=== PATIENT | male | born 1955 | race Caucasian/White ===

== ENCOUNTER 2020-07-12 15:57 | Inpatient (IN) ==
[2020-07-12 17:18] LABS: Basophils % 0.3 %; Hematocrit 41.4 % (37.5-50.1); Hemoglobin 12.9 g/dL (12.9-16.9); Immature Granulocytes % 1.4 % (0-4); Lymphocytes # 0.5 K/mcL (0.6-4.6); Lymphocytes % 4.8 %; Mean Corpuscular HGB Conc 31.2 g/dL (31.6-35.5); Mean Corpuscular Hemoglobin 31.6 pg (28.0-33.3); Mean Corpuscular Volume 101.5 fL (83.0-100.0); Mean Platelet Volume 9.7 fL (9.4-12.4); Monocytes # 0.5 K/mcL (0.0-1.3); Monocytes % 5.1 %; Platelet Count 233 K/mcL (140-400); Red Blood Count 4.08 M/mcL (4.19-5.50); Red Cell Distribution Width 12.8 % (11.5-14.5); Segmented Neutrophils % 88.4 %; White Blood Count 10.1 K/mcL (4.3-11.1)
[2020-07-12 17:25] LABS: INR 0.9; Prothrombin Time 10.2 Seconds (9.4-12.1)
[2020-07-12 17:28] LABS: Activated Partial Thrombo Time 24.3 Seconds (26.0-36.0)
[2020-07-12 17:44] LABS: Alanine Aminotransferase 42 Units/L (7-52); Albumin 4.1 g/dL (3.5-5.7); Albumin/Globulin Ratio 1.8 (1.1-2.2); Alkaline Phosphatase 87 Units/L (34-104); Aspartate Amino Transferase 20 Units/L (13-39); BUN/Creatinine Ratio 28 (6-26); Bilirubin,Total 0.3 mg/dL (0.3-1.0); Blood Urea Nitrogen 17 mg/dL (8-23); Calcium 9.3 mg/dL (8.6-10.3); Carbon Dioxide > 45 mEq/L (23-29); Chloride 90 mEq/L (98-107); Globulin 2.3 g/dL (2.4-3.5); Glucose 384 mg/dL (70-105); Osmolality,Calculated 307 (280-300); Potassium 4.4 mEq/L (3.5-5.1); Sodium 140 mEq/L (136-145); Total Protein 6.4 g/dL (6.4-8.9); Troponin I 0.09 ng/mL (< 0.04); eGFR For African Americans > 60 (> 60); eGFR For Non-African Americans > 60 (> 60)
[2020-07-12 17:45] LABS: Bilirubin,Urine Negative (Negative); Blood,Urine Negative (Negative); Clarity,Urine Clear (Clear); Color,Urine Light-Yellow (Yellow); Glucose,Urine (UA) >=1000 mg/dL (Normal); Ketones,Urine Negative (Negative); Leukocyte Esterase,Urine Negative (Negative); Mucus,Urine Few per lpf (None-Few); Nitrite,Urine Negative (Negative); PH,Urine 5.5 pH Units (5.0-8.0); Protein,Urine Trace mg/dL (Neg-Trace); RBC,Urine 0-3 per hpf (0-3); Specific Gravity,Urine > 1.030 (1.010-1.025); Urobilinogen,Urine Normal (Normal); WBC,Urine 0-3 per hpf (0-3)
[2020-07-12] MEDS ORDERED: cefTRIAXone 1,000 MG in Water for inj. (sterile) 10 ML IVP ONE (18:20)
[2020-07-12] MEDS ORDERED: Azithromycin 500 MG in 0.9 % Sodium Chloride 250 ML IVPB ONE (18:20)
[2020-07-12] MEDS ORDERED: Aspirin 81 MG TAB.CHEW PO ONE (18:20)
[2020-07-12 18:42] LABS: Bilirubin,Urine Negative (Negative); Blood,Urine Trace (Negative); Clarity,Urine Clear (Clear); Color,Urine Light-Yellow (Yellow); Glucose,Urine (UA) >=1000 mg/dL (Normal); Ketones,Urine Negative (Negative); Leukocyte Esterase,Urine Negative (Negative); Mucus,Urine Few per lpf (None-Few); Nitrite,Urine Negative (Negative); PH,Urine 5.5 pH Units (5.0-8.0); Protein,Urine Trace mg/dL (Neg-Trace); RBC,Urine 0-3 per hpf (0-3); Specific Gravity,Urine > 1.030 (1.010-1.025); Urobilinogen,Urine Normal (Normal); WBC,Urine 0-3 per hpf (0-3)
[2020-07-12] MEDS ORDERED: methylPREDNISolone 125 MG/2 ML VIAL IVP ONE (18:47)
[2020-07-12] MEDS ORDERED: Ipratropium 1 PUFF INHALER IH ONE (18:49)
[2020-07-12] MEDS ORDERED: *HR* LORazepam 2 MG/ML VIAL IVP ONE (19:45)
[2020-07-12 20:38] LABS: VBG HCO3 55 mEq/L (21-27); VBG PCO2 101 mmHg (41-51); VBG PH 7.34 pH Units (7.32-7.42); VBG PO2 77 mmHg (25-50)
[2020-07-12 21:05] LABS: Adenovirus Not Detected (Not Detect); Bordetella Pertussis Not Detected (Not Detect); Chlamydophila pneumoniae Not Detected (Not Detect); Coronavirus 229E Not Detected (Not Detect); Coronavirus HKU1 Not Detected (Not Detect); Coronavirus NL63 Not Detected (Not Detect); Coronavirus OC43 Not Detected (Not Detect); Human Metapneumovirus Not Detected (Not Detect); Human Rhinovirus/Enterovirus Not Detected (Not Detect); Influenza A Subtype 2009 H1 Not Detected (Not Detect); Influenza B Not Detected (Not Detect); Mycoplasma pneumoniae Not Detected (Not Detect); Parainfluenza Virus 1 Not Detected (Not Detect); Parainfluenza Virus 2 Not Detected (Not Detect); Parainfluenza Virus 3 Not Detected (Not Detect); Parainfluenza Virus 4 Not Detected (Not Detect); Respiratory Syncytial Virus Not Detected (Not Detect); SARS-CoV-2 Not Detected (Not Detect)
[2020-07-12] MEDS ORDERED: Ondansetron 4 MG/2 ML VIAL IVP PRN (22:37)
[2020-07-12] MEDS ORDERED: Acetaminophen 325 MG TABLET PO PRN (22:37)
[2020-07-12] MEDS ORDERED: Naloxone 0.4 MG/ML INJ IVP PRN (22:37)
[2020-07-12] MEDS ORDERED: *HR* LORazepam 2 MG/ML VIAL IVP PRN ×3 (23:13)
[2020-07-12] MEDS ORDERED: Perflutren Lipid Microsphere 1.3 ML in 0.9 % Sodium Chloride 8.7 ML IVP PRN (23:15)
[2020-07-12] MEDS ORDERED: *HR* Labetalol 20 MG/4 ML SYRINGE IVP PRN (23:27)
[2020-07-12] MEDS: *HR* LORazepam Oral Conc 2 MG/ML SL ONE ×2 (23:28→23:39)
[2020-07-12] MEDS: Thiamine (B-1) 100 MG TABLET PO SCH (23:29)
[2020-07-12] MEDS: Vitamin B Complex/Vit C/Vit E 1 EACH TABLET PO SCH (23:29)
[2020-07-12] MEDS: Folic Acid 1 MG TABLET PO SCH (23:29)
[2020-07-13 00:59] LABS: ABG Base Excess 21 mEq/L (-2 to 3); ABG HCO3 54 mEq/L (21-27); ABG Oxygen Saturation 88 % (95-98); ABG PCO2 109 mmHg (35-45); ABG PO2 66 mmHg (85-104); ABG TCO2 > 50 mEq/L (20-26); Blood Gas Modality BiLevel; Blood Gas VT 450 cc
[2020-07-13] MEDS ORDERED: *HR* Heparin 5,000 UNIT/ML VIAL IVP PRN ×2 (01:05)
[2020-07-13] MEDS ORDERED: *HR* Heparin 5,000 UNIT/ML VIAL IVP ONE (01:05)
[2020-07-13] MEDS ORDERED: D5% in Water 1,000 ML IVC PRN (01:25)
[2020-07-13] MEDS ORDERED: Dextrose Gel 15 GM/37.5 ML TUBE PO PRN ×2 (01:25)
[2020-07-13] MEDS ORDERED: *HR* Dextrose 50 % in Water (Vial) 50 ML VIAL IVP PRN (01:25)
[2020-07-13 01:47] LABS: VBG HCO3 51 mEq/L (21-27); VBG PCO2 84 mmHg (41-51); VBG PH 7.39 pH Units (7.32-7.42); VBG PO2 149 mmHg (25-50)
[2020-07-13 01:59] LABS: Prothrombin Time 11.3 Seconds (9.4-12.1)
[2020-07-13] MEDS: Heparin 25,000UNIT/250ML 1/2NS 25,000 UNIT/250 ML IV.SOLN IVC SCH (01:59)
[2020-07-13 02:03] LABS: Heparin anti-factor XA UFH 0.05 IU/mL (0.30-0.70)
[2020-07-13 02:16] LABS: BUN/Creatinine Ratio 33 (6-26); Blood Urea Nitrogen 17 mg/dL (8-23); Calcium 8.7 mg/dL (8.6-10.3); Carbon Dioxide > 45 mEq/L (23-29); Chloride 91 mEq/L (98-107); Glucose 258 mg/dL (70-105); Magnesium 1.9 mg/dL (1.6-2.6); Osmolality,Calculated 300 (280-300); Potassium 4.5 mEq/L (3.5-5.1); Sodium 140 mEq/L (136-145); eGFR For African Americans > 60 (> 60); eGFR For Non-African Americans > 60 (> 60)
[2020-07-13 02:18] LABS: Troponin I 0.48 ng/mL (< 0.04)
[2020-07-13 02:32] LABS: Basophils % 0.3 %; Hematocrit 38.8 % (37.5-50.1); Red Cell Distribution Width 12.8 % (11.5-14.5)
[2020-07-13 02:34] LABS: Eosinophils % 0.1 %; Hemoglobin 12.7 g/dL (12.9-16.9); Immature Platelets 4.6 % (1.1-6.1); Lymphocytes # 0.4 K/mcL (0.6-4.6); Lymphocytes % 3.1 %; Mean Corpuscular HGB Conc 32.7 g/dL (31.6-35.5); Mean Corpuscular Hemoglobin 31.9 pg (28.0-33.3); Mean Corpuscular Volume 97.5 fL (83.0-100.0); Mean Platelet Volume 10.3 fL (9.4-12.4); Monocytes # 0.2 K/mcL (0.0-1.3); Monocytes % 1.9 %; Nucleated Red Blood Cells 0.2 /100 WBC (0); Platelet Count 220 K/mcL (140-400); Red Blood Count 3.98 M/mcL (4.19-5.50); Segmented Neutrophils % 93.6 %; White Blood Count 11.6 K/mcL (4.3-11.1)
[2020-07-13 03:08] LABS: Thyroid Stimulating Hormone 0.469 mcIU/mL (0.340-5.600)
[2020-07-13 03:17] LABS: Neutrophils # 10.9 K/mcL (1.6-8.9)
[2020-07-13 03:36] LABS: ABG Base Excess 17 mEq/L (-2 to 3); ABG HCO3 48 mEq/L (21-27); ABG Oxygen Saturation 97 % (95-98); ABG PCO2 95 mmHg (35-45); ABG PH 7.31 pH Units (7.32-7.45); ABG PO2 113 mmHg (85-104); ABG TCO2 > 50 mEq/L (20-26); Blood Gas Modality BiLevel; Blood Gas VT 500 cc
[2020-07-13] MEDS: Insulin LISPRO 300 UNITS/3 ML VIAL SQ SCH ×3 (05:51→17:30)
[2020-07-13] MEDS: Thiamine (B-1) 100 MG TABLET PO SCH (07:21)
[2020-07-13] MEDS: Vitamin B Complex/Vit C/Vit E 1 EACH TABLET PO SCH (07:21)
[2020-07-13] MEDS: Folic Acid 1 MG TABLET PO SCH (07:21)
[2020-07-13 08:33] LABS: ABG Base Excess 20 mEq/L (-2 to 3); ABG HCO3 51 mEq/L (21-27); ABG Oxygen Saturation 98 % (95-98); ABG PCO2 96 mmHg (35-45); ABG PH 7.34 pH Units (7.32-7.45); ABG PO2 113 mmHg (85-104); ABG TCO2 > 50 mEq/L (20-26); Blood Gas VT 500 cc
[2020-07-13 14:20] LABS: VBG HCO3 53 mEq/L (21-27); VBG PCO2 87 mmHg (41-51); VBG PH 7.39 pH Units (7.32-7.42); VBG PO2 195 mmHg (25-50)
[2020-07-13] MEDS: carvediloL 6.25 MG TABLET PO SCH (17:29)
[2020-07-13] MEDS ORDERED: Ipratropium Neb 0.5 MG NEBULIZER IH PRN (17:39)
[2020-07-13 17:45] LABS: VBG HCO3 54 mEq/L (21-27); VBG PCO2 83 mmHg (41-51); VBG PH 7.42 pH Units (7.32-7.42); VBG PO2 236 mmHg (25-50)
[2020-07-13] MEDS: cefTRIAXone 1,000 MG in Water for inj. (sterile) 10 ML IVPB SCH (18:24)
[2020-07-13] MEDS ORDERED: MethylPREDNISolone 40 MG/ML VIAL IVP SCH (19:00)
[2020-07-13] MEDS: Ipratropium/Albuterol Neb 3 ML IH SCH ×2 (19:40→22:16)
[2020-07-13] MEDS: risperiDONE 1 MG TABLET PO SCH (20:11)
[2020-07-13] MEDS: Perphenazine 8 MG TABLET PO SCH (20:11)
[2020-07-14] MEDS: Insulin LISPRO 300 UNITS/3 ML VIAL SQ SCH ×4 (02:50→17:25)
[2020-07-14] MEDS: Heparin 25,000UNIT/250ML 1/2NS 25,000 UNIT/250 ML IV.SOLN IVC SCH (03:06)
[2020-07-14] MEDS: Ipratropium/Albuterol Neb 3 ML IH SCH ×4 (03:40→22:20)
[2020-07-14 05:58] LABS: Basophils % 0.2 %; Hematocrit 40.6 % (37.5-50.1); Immature Granulocytes % 0.6 % (0-4); Lymphocytes # 0.8 K/mcL (0.6-4.6); Lymphocytes % 7.5 %; Mean Corpuscular Hemoglobin 31.8 pg (28.0-33.3); Mean Corpuscular Volume 99.3 fL (83.0-100.0); Mean Platelet Volume 9.8 fL (9.4-12.4); Monocytes # 0.6 K/mcL (0.0-1.3); Monocytes % 6.1 %; Neutrophils # 8.7 K/mcL (1.6-8.9); Platelet Count 247 K/mcL (140-400); Red Blood Count 4.09 M/mcL (4.19-5.50); Red Cell Distribution Width 12.5 % (11.5-14.5); Segmented Neutrophils % 85.6 %; White Blood Count 10.1 K/mcL (4.3-11.1)
[2020-07-14 06:01] LABS: VBG HCO3 49 mEq/L (21-27); VBG PCO2 72 mmHg (41-51); VBG PH 7.44 pH Units (7.32-7.42); VBG PO2 152 mmHg (25-50)
[2020-07-14 06:18] LABS: Alanine Aminotransferase 28 Units/L (7-52); Albumin 3.5 g/dL (3.5-5.7); Albumin/Globulin Ratio 1.7 (1.1-2.2); Alkaline Phosphatase 79 Units/L (34-104); Aspartate Amino Transferase 15 Units/L (13-39); BUN/Creatinine Ratio 55 (6-26); Bilirubin,Total 0.6 mg/dL (0.3-1.0); Blood Urea Nitrogen 31 mg/dL (8-23); Calcium 8.5 mg/dL (8.6-10.3); Carbon Dioxide > 45 mEq/L (23-29); Chloride 90 mEq/L (98-107); Globulin 2.1 g/dL (2.4-3.5); Glucose 207 mg/dL (70-105); Magnesium 2.2 mg/dL (1.6-2.6); Osmolality,Calculated 307 (280-300); Potassium 4.3 mEq/L (3.5-5.1); Sodium 142 mEq/L (136-145); Total Protein 5.6 g/dL (6.4-8.9); Troponin I 0.27 ng/mL (< 0.04); eGFR For African Americans > 60 (> 60); eGFR For Non-African Americans > 60 (> 60)
[2020-07-14] MEDS: Thiamine (B-1) 100 MG TABLET PO SCH (09:23)
[2020-07-14] MEDS: Perphenazine 8 MG TABLET PO SCH ×2 (09:23→20:14)
[2020-07-14] MEDS: Aspirin Enteric Coated 81 MG Tablet PO SCH (09:23)
[2020-07-14] MEDS: carvediloL 6.25 MG TABLET PO SCH ×2 (09:23→17:24)
[2020-07-14] MEDS: Folic Acid 1 MG TABLET PO SCH (09:23)
[2020-07-14] MEDS: risperiDONE 1 MG TABLET PO SCH ×2 (09:24→20:14)
[2020-07-14] MEDS: Vitamin B Complex/Vit C/Vit E 1 EACH TABLET PO SCH (09:24)
[2020-07-14] MEDS: MethylPREDNISolone 40 MG/ML VIAL IVP SCH ×2 (12:10→22:10)
[2020-07-14] MEDS: cefTRIAXone 1,000 MG in Water for inj. (sterile) 10 ML IVPB SCH (17:24)
[2020-07-14] MEDS: Insulin LISPRO 300 UNITS/3 ML VIAL SUBQ SCH (20:20)
[2020-07-15] MEDS: Ipratropium/Albuterol Neb 3 ML IH SCH ×4 (03:44→22:50)
[2020-07-15] MEDS: Heparin 25,000UNIT/250ML 1/2NS 25,000 UNIT/250 ML IV.SOLN IVC SCH (05:50)
[2020-07-15 06:44] LABS: Basophils % 0.1 %; Hematocrit 37.6 % (37.5-50.1); Hemoglobin 12.2 g/dL (12.9-16.9); Immature Granulocytes % 0.5 % (0-4); Lymphocytes # 0.3 K/mcL (0.6-4.6); Lymphocytes % 3.3 %; Mean Corpuscular HGB Conc 32.4 g/dL (31.6-35.5); Mean Corpuscular Hemoglobin 31.2 pg (28.0-33.3); Mean Corpuscular Volume 96.2 fL (83.0-100.0); Mean Platelet Volume 10.2 fL (9.4-12.4); Monocytes # 0.2 K/mcL (0.0-1.3); Monocytes % 2.6 %; Neutrophils # 7.6 K/mcL (1.6-8.9); Platelet Count 208 K/mcL (140-400); Red Blood Count 3.91 M/mcL (4.19-5.50); Red Cell Distribution Width 12.5 % (11.5-14.5); Segmented Neutrophils % 93.5 %; White Blood Count 8.2 K/mcL (4.3-11.1)
[2020-07-15] MEDS: Vitamin B Complex/Vit C/Vit E 1 EACH TABLET PO SCH (07:43)
[2020-07-15] MEDS: Perphenazine 8 MG TABLET PO SCH ×2 (07:43→21:00)
[2020-07-15] MEDS: Aspirin Enteric Coated 81 MG Tablet PO SCH (07:43)
[2020-07-15] MEDS: risperiDONE 1 MG TABLET PO SCH ×2 (07:43→21:00)
[2020-07-15] MEDS: Insulin LISPRO 300 UNITS/3 ML VIAL SUBQ SCH ×4 (07:43→21:01)
[2020-07-15] MEDS: Thiamine (B-1) 100 MG TABLET PO SCH (07:43)
[2020-07-15] MEDS: carvediloL 6.25 MG TABLET PO SCH ×2 (07:43→16:59)
[2020-07-15] MEDS: Folic Acid 1 MG TABLET PO SCH (07:43)
[2020-07-15 08:38] LABS: BUN/Creatinine Ratio 44 (6-26); Blood Urea Nitrogen 22 mg/dL (8-23); Calcium 8.4 mg/dL (8.6-10.3); Carbon Dioxide 39 mEq/L (23-29); Chloride 90 mEq/L (98-107); Glucose 352 mg/dL (70-105); Osmolality,Calculated 297 (280-300); Potassium 4.5 mEq/L (3.5-5.1); Sodium 135 mEq/L (136-145); eGFR For African Americans > 60 (> 60); eGFR For Non-African Americans > 60 (> 60)
[2020-07-15] MEDS: MethylPREDNISolone 40 MG/ML VIAL IVP SCH ×2 (09:40→21:01)
[2020-07-15] MEDS ORDERED: Nicotine 2 MG GUM BC PRN (13:57)
[2020-07-15] MEDS: Doxycycline 100 MG in 0.9 % Sodium Chloride Mini Bag 100 ML IVPB SCH (16:59)
[2020-07-15] MEDS: *HR* Heparin 5,000 UNIT/ML VIAL SQ SCH (21:01)
[2020-07-16] MEDS: Ipratropium/Albuterol Neb 3 ML IH SCH ×4 (03:47→22:46)
[2020-07-16] MEDS: Doxycycline 100 MG in 0.9 % Sodium Chloride Mini Bag 100 ML IVPB SCH ×2 (06:55→17:14)
[2020-07-16] MEDS: *HR* Heparin 5,000 UNIT/ML VIAL SQ SCH ×3 (06:56→22:56)
[2020-07-16 07:34] LABS: Basophils % 0.1 %; Hematocrit 38.1 % (37.5-50.1); Hemoglobin 12.4 g/dL (12.9-16.9); Immature Granulocytes % 0.8 % (0-4); Lymphocytes # 0.3 K/mcL (0.6-4.6); Lymphocytes % 2.7 %; Mean Corpuscular HGB Conc 32.5 g/dL (31.6-35.5); Mean Corpuscular Hemoglobin 31.5 pg (28.0-33.3); Mean Corpuscular Volume 96.7 fL (83.0-100.0); Mean Platelet Volume 10.2 fL (9.4-12.4); Monocytes # 0.6 K/mcL (0.0-1.3); Monocytes % 5.2 %; Neutrophils # 10.7 K/mcL (1.6-8.9); Platelet Count 234 K/mcL (140-400); Red Blood Count 3.94 M/mcL (4.19-5.50); Red Cell Distribution Width 12.4 % (11.5-14.5); Segmented Neutrophils % 91.2 %; White Blood Count 11.7 K/mcL (4.3-11.1)
[2020-07-16 07:53] LABS: BUN/Creatinine Ratio 48 (6-26); Blood Urea Nitrogen 30 mg/dL (8-23); Calcium 8.3 mg/dL (8.6-10.3); Carbon Dioxide 38 mEq/L (23-29); Chloride 90 mEq/L (98-107); Glucose 397 mg/dL (70-105); Osmolality,Calculated 297 (280-300); Sodium 132 mEq/L (136-145); eGFR For African Americans > 60 (> 60); eGFR For Non-African Americans > 60 (> 60)
[2020-07-16] MEDS: Perphenazine 8 MG TABLET PO SCH ×2 (08:10→22:56)
[2020-07-16] MEDS: Folic Acid 1 MG TABLET PO SCH (08:10)
[2020-07-16] MEDS: Vitamin B Complex/Vit C/Vit E 1 EACH TABLET PO SCH (08:10)
[2020-07-16] MEDS: carvediloL 6.25 MG TABLET PO SCH ×2 (08:10→17:14)
[2020-07-16] MEDS: Aspirin Enteric Coated 81 MG Tablet PO SCH (08:10)
[2020-07-16] MEDS: Thiamine (B-1) 100 MG TABLET PO SCH (08:10)
[2020-07-16] MEDS: risperiDONE 1 MG TABLET PO SCH ×2 (08:10→22:56)
[2020-07-16] MEDS: Insulin LISPRO 300 UNITS/3 ML VIAL SUBQ SCH ×4 (08:11→22:55)
[2020-07-16] MEDS: MethylPREDNISolone 40 MG/ML VIAL IVP SCH (09:40)
[2020-07-17 02:58] LABS: Basophils % 0.1 %; Hematocrit 39.4 % (37.5-50.1); Hemoglobin 12.9 g/dL (12.9-16.9); Immature Granulocytes % 0.7 % (0-4); Lymphocytes # 0.7 K/mcL (0.6-4.6); Lymphocytes % 5.8 %; Mean Corpuscular HGB Conc 32.7 g/dL (31.6-35.5); Mean Corpuscular Hemoglobin 32.3 pg (28.0-33.3); Mean Corpuscular Volume 98.5 fL (83.0-100.0); Mean Platelet Volume 10.3 fL (9.4-12.4); Monocytes % 8.2 %; Neutrophils # 10.9 K/mcL (1.6-8.9); Platelet Count 228 K/mcL (140-400); Red Cell Distribution Width 12.3 % (11.5-14.5); Segmented Neutrophils % 85.2 %; White Blood Count 12.8 K/mcL (4.3-11.1)
[2020-07-17 02:59] LABS: INR 0.9; Prothrombin Time 10.3 Seconds (9.4-12.1)
[2020-07-17 03:11] LABS: BUN/Creatinine Ratio 56 (6-26); Blood Urea Nitrogen 33 mg/dL (8-23); Calcium 8.8 mg/dL (8.6-10.3); Carbon Dioxide 40 mEq/L (23-29); Chloride 92 mEq/L (98-107); Glucose 311 mg/dL (70-105); Osmolality,Calculated 299 (280-300); Potassium 5.4 mEq/L (3.5-5.1); Sodium 135 mEq/L (136-145); eGFR For African Americans > 60 (> 60); eGFR For Non-African Americans > 60 (> 60)
[2020-07-17] MEDS: Ipratropium/Albuterol Neb 3 ML IH SCH ×4 (03:47→22:11)
[2020-07-17] MEDS: Doxycycline 100 MG in 0.9 % Sodium Chloride Mini Bag 100 ML IVPB SCH ×2 (06:40→17:19)
[2020-07-17] MEDS: *HR* Heparin 5,000 UNIT/ML VIAL SQ SCH ×3 (06:40→20:07)
[2020-07-17] MEDS: MethylPREDNISolone 40 MG/ML VIAL IVP SCH (08:07)
[2020-07-17] MEDS: Insulin LISPRO 300 UNITS/3 ML VIAL SUBQ SCH ×4 (08:08→20:30)
[2020-07-17] MEDS: Perphenazine 8 MG TABLET PO SCH ×2 (08:09→20:07)
[2020-07-17] MEDS: risperiDONE 1 MG TABLET PO SCH ×2 (08:09→20:08)
[2020-07-17] MEDS: Thiamine (B-1) 100 MG TABLET PO SCH (08:09)
[2020-07-17] MEDS: carvediloL 6.25 MG TABLET PO SCH ×2 (08:09→17:19)
[2020-07-17] MEDS: Vitamin B Complex/Vit C/Vit E 1 EACH TABLET PO SCH (08:09)
[2020-07-17] MEDS: Aspirin Enteric Coated 81 MG Tablet PO SCH (08:09)
[2020-07-17] MEDS: Folic Acid 1 MG TABLET PO SCH (08:09)
[2020-07-17] MEDS ORDERED: *HR* Propofol 200 MG/20 ML VIAL IVP ONE (11:10)
[2020-07-17] MEDS ORDERED: *HR* Succinylcholine 200 MG/10 ML VIAL IVP ONE (11:11)
[2020-07-17] MEDS ORDERED: Lidocaine HCL 4 ML Topical Solution (Laryng-O-Jet Kit Sterile Pak) TP ONE (11:14)
[2020-07-17] MEDS ORDERED: Lidocaine -MPF 2% 2 ML VIAL ONE (11:16)
[2020-07-17] MEDS ORDERED: *HR* PHENYLEPHRINE 1,000 MCG/10 ML SYRINGE IVP ONE (11:44)
[2020-07-17] MEDS ORDERED: EPHEDrine 50 MG/ML VIAL ONE (11:51)
[2020-07-17 12:48] LABS: ABG Base Excess 13 mEq/L (-2 to 3); ABG HCO3 45 mEq/L (21-27); ABG Oxygen Saturation 92 % (95-98); ABG PCO2 109 mmHg (35-45); ABG PH 7.23 pH Units (7.32-7.45); ABG PO2 84 mmHg (85-104); ABG TCO2 49 mEq/L (20-26)
[2020-07-17 14:37] LABS: BUN/Creatinine Ratio 52 (6-26); Blood Urea Nitrogen 29 mg/dL (8-23); Calcium 8.7 mg/dL (8.6-10.3); Carbon Dioxide 42 mEq/L (23-29); Chloride 93 mEq/L (98-107); Glucose 146 mg/dL (70-105); Osmolality,Calculated 290 (280-300); Potassium 5.7 mEq/L (3.5-5.1); Sodium 136 mEq/L (136-145); eGFR For African Americans > 60 (> 60); eGFR For Non-African Americans > 60 (> 60)
[2020-07-17 17:22] LABS: Appearance of Body Fluid Cloudy (Clear); Volume of Body Fluid 16 mL
[2020-07-17 17:23] LABS: Appearance of Body Fluid Cloudy (Clear); Volume of Body Fluid 21 mL
[2020-07-17] MEDS ORDERED: Furosemide 40 MG/4 ML VIAL IVP ONE (20:00)
[2020-07-17] MEDS: Vancomycin 1,250 MG/262.5 ML IV.SOLN IVPB SCH (20:32)
[2020-07-18] MEDS: Ipratropium/Albuterol Neb 3 ML IH SCH ×4 (03:47→21:34)
[2020-07-18] MEDS: Doxycycline 100 MG in 0.9 % Sodium Chloride Mini Bag 100 ML IVPB SCH ×2 (05:47→18:57)
[2020-07-18] MEDS: *HR* Heparin 5,000 UNIT/ML VIAL SQ SCH ×3 (05:48→20:37)
[2020-07-18 07:27] LABS: Basophils % 0.1 %; Eosinophils % 0.1 %; Hematocrit 42.5 % (37.5-50.1); Hemoglobin 13.9 g/dL (12.9-16.9); Immature Granulocytes % 0.4 % (0-4); Lymphocytes # 0.8 K/mcL (0.6-4.6); Lymphocytes % 5.7 %; Mean Corpuscular HGB Conc 32.7 g/dL (31.6-35.5); Mean Corpuscular Hemoglobin 32.4 pg (28.0-33.3); Mean Corpuscular Volume 99.1 fL (83.0-100.0); Mean Platelet Volume 10.1 fL (9.4-12.4); Monocytes # 0.7 K/mcL (0.0-1.3); Monocytes % 4.8 %; Neutrophils # 12.6 K/mcL (1.6-8.9); Platelet Count 217 K/mcL (140-400); Red Blood Count 4.29 M/mcL (4.19-5.50); Red Cell Distribution Width 12.6 % (11.5-14.5); Segmented Neutrophils % 88.9 %; White Blood Count 14.1 K/mcL (4.3-11.1)
[2020-07-18 08:12] LABS: BUN/Creatinine Ratio 55 (6-26); Blood Urea Nitrogen 32 mg/dL (8-23); Calcium 8.7 mg/dL (8.6-10.3); Carbon Dioxide > 45 mEq/L (23-29); Chloride 89 mEq/L (98-107); Glucose 124 mg/dL (70-105); Osmolality,Calculated 294 (280-300); Potassium 4.2 mEq/L (3.5-5.1); Sodium 138 mEq/L (136-145); eGFR For African Americans > 60 (> 60); eGFR For Non-African Americans > 60 (> 60)
[2020-07-18] MEDS: Insulin LISPRO 300 UNITS/3 ML VIAL SUBQ SCH ×4 (08:34→20:36)
[2020-07-18] MEDS: risperiDONE 1 MG TABLET PO SCH ×2 (08:35→20:33)
[2020-07-18] MEDS: Perphenazine 8 MG TABLET PO SCH ×2 (08:35→20:36)
[2020-07-18] MEDS: Vitamin B Complex/Vit C/Vit E 1 EACH TABLET PO SCH (08:35)
[2020-07-18] MEDS: Aspirin Enteric Coated 81 MG Tablet PO SCH (08:35)
[2020-07-18] MEDS: Folic Acid 1 MG TABLET PO SCH (08:35)
[2020-07-18] MEDS: carvediloL 6.25 MG TABLET PO SCH ×2 (08:35→16:40)
[2020-07-18] MEDS: Thiamine (B-1) 100 MG TABLET PO SCH (08:35)
[2020-07-18] MEDS: MethylPREDNISolone 40 MG/ML VIAL IVP SCH (08:35)
[2020-07-18] MEDS: Vancomycin 1,250 MG/262.5 ML IV.SOLN IVPB SCH ×2 (11:53→22:22)
[2020-07-19] MEDS: Ipratropium/Albuterol Neb 3 ML IH SCH ×4 (03:30→22:06)
[2020-07-19] MEDS: Doxycycline 100 MG in 0.9 % Sodium Chloride Mini Bag 100 ML IVPB SCH (05:22)
[2020-07-19] MEDS: *HR* Heparin 5,000 UNIT/ML VIAL SQ SCH ×3 (05:22→21:34)
[2020-07-19 08:39] LABS: Basophils % 0.1 %; Eosinophils % 0.2 %; Hematocrit 36.9 % (37.5-50.1); Immature Granulocytes % 1.2 % (0-4); Lymphocytes # 0.9 K/mcL (0.6-4.6); Lymphocytes % 5.8 %; Mean Corpuscular HGB Conc 32.8 g/dL (31.6-35.5); Mean Corpuscular Hemoglobin 31.7 pg (28.0-33.3); Mean Corpuscular Volume 96.6 fL (83.0-100.0); Mean Platelet Volume 10.1 fL (9.4-12.4); Monocytes # 0.9 K/mcL (0.0-1.3); Monocytes % 6.3 %; Neutrophils # 12.5 K/mcL (1.6-8.9); Platelet Count 212 K/mcL (140-400); Red Blood Count 3.82 M/mcL (4.19-5.50); Red Cell Distribution Width 12.4 % (11.5-14.5); Segmented Neutrophils % 86.4 %; White Blood Count 14.5 K/mcL (4.3-11.1)
[2020-07-19 08:44] LABS: Hemoglobin 12.1 g/dL (12.9-16.9)
[2020-07-19 09:04] LABS: BUN/Creatinine Ratio 43 (6-26); Blood Urea Nitrogen 22 mg/dL (8-23); Calcium 8.2 mg/dL (8.6-10.3); Carbon Dioxide 41 mEq/L (23-29); Chloride 94 mEq/L (98-107); Glucose 207 mg/dL (70-105); Osmolality,Calculated 295 (280-300); Potassium 4.2 mEq/L (3.5-5.1); Sodium 138 mEq/L (136-145); eGFR For African Americans > 60 (> 60); eGFR For Non-African Americans > 60 (> 60)
[2020-07-19] MEDS: Insulin LISPRO 300 UNITS/3 ML VIAL SUBQ SCH ×4 (11:15→21:35)
[2020-07-19] MEDS: carvediloL 6.25 MG TABLET PO SCH ×2 (11:17→17:34)
[2020-07-19] MEDS: Aspirin Enteric Coated 81 MG Tablet PO SCH (11:18)
[2020-07-19] MEDS: Vitamin B Complex/Vit C/Vit E 1 EACH TABLET PO SCH (11:18)
[2020-07-19] MEDS: Perphenazine 8 MG TABLET PO SCH ×2 (11:18→21:33)
[2020-07-19] MEDS: Folic Acid 1 MG TABLET PO SCH (11:19)
[2020-07-19] MEDS: Thiamine (B-1) 100 MG TABLET PO SCH (11:19)
[2020-07-19] MEDS: risperiDONE 1 MG TABLET PO SCH ×2 (11:19→21:34)
[2020-07-19] MEDS: MethylPREDNISolone 40 MG/ML VIAL IVP SCH (11:20)
[2020-07-19] MEDS: Vancomycin 1,750 MG/517.5 ML IV.SOLN IVPB SCH ×2 (11:21→21:35)
[2020-07-19] MEDS: Vancomycin 1,250 MG/262.5 ML IV.SOLN IVPB SCH (11:22)
[2020-07-19] MEDS ORDERED: Furosemide 20 MG/2 ML VIAL IVP ONE (11:37)
[2020-07-19] MEDS: polyethylene glycoL 3350 17 GM POWD.PACK PO SCH (14:48)
[2020-07-20] MEDS: Ipratropium/Albuterol Neb 3 ML IH SCH ×4 (03:37→21:33)
[2020-07-20] MEDS: *HR* Heparin 5,000 UNIT/ML VIAL SQ SCH ×3 (06:04→20:10)
[2020-07-20 06:22] LABS: Basophils % 0.2 %; Eosinophils % 0.1 %; Hemoglobin 12.1 g/dL (12.9-16.9); Immature Granulocytes % 1.3 % (0-4); Lymphocytes # 0.6 K/mcL (0.6-4.6); Lymphocytes % 4.3 %; Mean Corpuscular HGB Conc 32.7 g/dL (31.6-35.5); Mean Corpuscular Volume 97.9 fL (83.0-100.0); Mean Platelet Volume 9.8 fL (9.4-12.4); Monocytes # 0.8 K/mcL (0.0-1.3); Monocytes % 5.3 %; Neutrophils # 13.1 K/mcL (1.6-8.9); Platelet Count 233 K/mcL (140-400); Red Blood Count 3.78 M/mcL (4.19-5.50); Red Cell Distribution Width 12.5 % (11.5-14.5); Segmented Neutrophils % 88.8 %; White Blood Count 14.8 K/mcL (4.3-11.1)
[2020-07-20 07:01] LABS: BUN/Creatinine Ratio 48 (6-26); Blood Urea Nitrogen 22 mg/dL (8-23); Calcium 8.5 mg/dL (8.6-10.3); Carbon Dioxide 40 mEq/L (23-29); Chloride 93 mEq/L (98-107); Glucose 203 mg/dL (70-105); Osmolality,Calculated 291 (280-300); Potassium 4.4 mEq/L (3.5-5.1); Sodium 136 mEq/L (136-145); eGFR For African Americans > 60 (> 60); eGFR For Non-African Americans > 60 (> 60)
[2020-07-20] MEDS: risperiDONE 1 MG TABLET PO SCH ×2 (08:13→20:09)
[2020-07-20] MEDS: Perphenazine 8 MG TABLET PO SCH ×2 (08:13→20:08)
[2020-07-20] MEDS: Folic Acid 1 MG TABLET PO SCH (08:13)
[2020-07-20] MEDS: Vitamin B Complex/Vit C/Vit E 1 EACH TABLET PO SCH (08:13)
[2020-07-20] MEDS: Thiamine (B-1) 100 MG TABLET PO SCH (08:13)
[2020-07-20] MEDS: predniSONE 20 MG TABLET PO SCH (08:13)
[2020-07-20] MEDS: Insulin LISPRO 300 UNITS/3 ML VIAL SUBQ SCH ×4 (08:14→20:13)
[2020-07-20] MEDS: carvediloL 6.25 MG TABLET PO SCH ×2 (08:14→16:53)
[2020-07-20] MEDS: polyethylene glycoL 3350 17 GM POWD.PACK PO SCH (08:14)
[2020-07-20] MEDS: Aspirin Enteric Coated 81 MG Tablet PO SCH (08:14)
[2020-07-20 08:32] LABS: ABG Base Excess 15 mEq/L (-2 to 3); ABG HCO3 43 mEq/L (21-27); ABG Oxygen Saturation 88 % (95-98); ABG PCO2 76 mmHg (35-45); ABG PH 7.37 pH Units (7.32-7.45); ABG PO2 60 mmHg (85-104); ABG TCO2 46 mEq/L (20-26)
[2020-07-20] MEDS: Insulin DETEMIR 100 UNIT/ML X5UNITS SUBQ SCH ×2 (10:01→20:55)
[2020-07-20] MEDS: Vancomycin 1,750 MG/517.5 ML IV.SOLN IVPB SCH ×2 (10:01→21:57)
[2020-07-21] MEDS: Ipratropium/Albuterol Neb 3 ML IH SCH ×4 (03:47→21:44)
[2020-07-21 04:58] LABS: Basophils % 0.3 %; Eosinophils # 0.1 K/mcL (0.0-0.6); Eosinophils % 0.6 %; Hematocrit 38.2 % (37.5-50.1); Hemoglobin 12.7 g/dL (12.9-16.9); Immature Granulocytes % 1.9 % (0-4); Lymphocytes # 1.4 K/mcL (0.6-4.6); Lymphocytes % 11.6 %; Mean Corpuscular HGB Conc 33.2 g/dL (31.6-35.5); Mean Corpuscular Hemoglobin 32.4 pg (28.0-33.3); Mean Corpuscular Volume 97.4 fL (83.0-100.0); Mean Platelet Volume 9.7 fL (9.4-12.4); Monocytes # 0.9 K/mcL (0.0-1.3); Monocytes % 7.5 %; Neutrophils # 9.3 K/mcL (1.6-8.9); Platelet Count 257 K/mcL (140-400); Red Blood Count 3.92 M/mcL (4.19-5.50); Red Cell Distribution Width 12.4 % (11.5-14.5); Segmented Neutrophils % 78.1 %; White Blood Count 11.9 K/mcL (4.3-11.1)
[2020-07-21 05:21] LABS: BUN/Creatinine Ratio 32 (6-26); Blood Urea Nitrogen 19 mg/dL (8-23); Calcium 8.8 mg/dL (8.6-10.3); Carbon Dioxide 45 mEq/L (23-29); Chloride 91 mEq/L (98-107); Glucose 98 mg/dL (70-105); Magnesium 1.9 mg/dL (1.6-2.6); Osmolality,Calculated 288 (280-300); Phosphorous 3.6 mg/dL (2.7-4.5); Potassium 4.2 mEq/L (3.5-5.1); Sodium 138 mEq/L (136-145); eGFR For African Americans > 60 (> 60); eGFR For Non-African Americans > 60 (> 60)
[2020-07-21 05:29] LABS: ABG Base Excess 16 mEq/L (-2 to 3); ABG HCO3 46 mEq/L (21-27); ABG Oxygen Saturation 94 % (95-98); ABG PCO2 79 mmHg (35-45); ABG PH 7.37 pH Units (7.32-7.45); ABG PO2 76 mmHg (85-104); ABG TCO2 48 mEq/L (20-26)
[2020-07-21] MEDS: *HR* Heparin 5,000 UNIT/ML VIAL SQ SCH ×3 (06:29→23:16)
[2020-07-21] MEDS: polyethylene glycoL 3350 17 GM POWD.PACK PO SCH (09:41)
[2020-07-21] MEDS: predniSONE 20 MG TABLET PO SCH (09:42)
[2020-07-21] MEDS: Aspirin Enteric Coated 81 MG Tablet PO SCH (09:42)
[2020-07-21] MEDS: Thiamine (B-1) 100 MG TABLET PO SCH (09:42)
[2020-07-21] MEDS: carvediloL 6.25 MG TABLET PO SCH ×2 (09:42→18:00)
[2020-07-21] MEDS: Folic Acid 1 MG TABLET PO SCH (09:42)
[2020-07-21] MEDS: Sulfamethoxazole/Trimeth DS 1 EACH TABLET PO SCH ×2 (09:42→20:42)
[2020-07-21] MEDS: risperiDONE 1 MG TABLET PO SCH ×2 (09:42→20:42)
[2020-07-21] MEDS: Vitamin B Complex/Vit C/Vit E 1 EACH TABLET PO SCH (09:42)
[2020-07-21] MEDS: Perphenazine 8 MG TABLET PO SCH ×2 (09:42→20:42)
[2020-07-21] MEDS: Insulin DETEMIR 100 UNIT/ML X5UNITS SUBQ SCH ×2 (09:42→20:42)
[2020-07-21] MEDS: Insulin LISPRO 300 UNITS/3 ML VIAL SUBQ SCH ×4 (09:43→20:42)
[2020-07-22 02:36] LABS: Basophils # 0.1 K/mcL (0.0-0.2); Basophils % 0.6 %; Eosinophils % 0.4 %; Hematocrit 38.4 % (37.5-50.1); Hemoglobin 12.7 g/dL (12.9-16.9); Immature Granulocytes % 2.1 % (0-4); Lymphocytes # 1.1 K/mcL (0.6-4.6); Lymphocytes % 9.9 %; Mean Corpuscular HGB Conc 33.1 g/dL (31.6-35.5); Mean Corpuscular Hemoglobin 31.8 pg (28.0-33.3); Mean Platelet Volume 9.6 fL (9.4-12.4); Monocytes # 0.9 K/mcL (0.0-1.3); Monocytes % 8.7 %; Neutrophils # 8.3 K/mcL (1.6-8.9); Platelet Count 287 K/mcL (140-400); Red Cell Distribution Width 12.4 % (11.5-14.5); Segmented Neutrophils % 78.3 %; White Blood Count 10.6 K/mcL (4.3-11.1)
[2020-07-22 02:57] LABS: BUN/Creatinine Ratio 32 (6-26); Blood Urea Nitrogen 18 mg/dL (8-23); Calcium 8.7 mg/dL (8.6-10.3); Carbon Dioxide 41 mEq/L (23-29); Chloride 91 mEq/L (98-107); Glucose 87 mg/dL (70-105); Magnesium 2.1 mg/dL (1.6-2.6); Osmolality,Calculated 283 (280-300); Phosphorous 4.7 mg/dL (2.7-4.5); Potassium 4.4 mEq/L (3.5-5.1); Sodium 136 mEq/L (136-145); eGFR For African Americans > 60 (> 60); eGFR For Non-African Americans > 60 (> 60)
[2020-07-22] MEDS: Ipratropium/Albuterol Neb 3 ML IH SCH ×2 (03:42→10:59)
[2020-07-22] MEDS: *HR* Heparin 5,000 UNIT/ML VIAL SQ SCH (05:48)
[2020-07-22 07:39] VITALS: BP 126/75
[2020-07-22] MEDS: polyethylene glycoL 3350 17 GM POWD.PACK PO SCH (09:49)
[2020-07-22] MEDS: Aspirin Enteric Coated 81 MG Tablet PO SCH (09:49)
[2020-07-22] MEDS: risperiDONE 1 MG TABLET PO SCH (09:49)
[2020-07-22] MEDS: Thiamine (B-1) 100 MG TABLET PO SCH (09:49)
[2020-07-22] MEDS: Folic Acid 1 MG TABLET PO SCH (09:49)
[2020-07-22] MEDS: Sulfamethoxazole/Trimeth DS 1 EACH TABLET PO SCH (09:49)
[2020-07-22] MEDS: Insulin LISPRO 300 UNITS/3 ML VIAL SUBQ SCH ×2 (09:50→13:03)
[2020-07-22] MEDS: Vitamin B Complex/Vit C/Vit E 1 EACH TABLET PO SCH (09:50)
[2020-07-22] MEDS: Perphenazine 8 MG TABLET PO SCH (09:50)
[2020-07-22] MEDS: predniSONE 20 MG TABLET PO SCH (09:50)
[2020-07-22] MEDS: carvediloL 6.25 MG TABLET PO SCH (09:50)
[2020-07-22] MEDS: Insulin DETEMIR 100 UNIT/ML X5UNITS SUBQ SCH (09:51)
== END 2020-07-22 13:05 | disposition home health service (06) | DRG 137 ==
LOC: 3ANU 15:57 → EMEROOARM 15:57 → SUATTDRO 21:34 → 3ANU 22:27 → SUATTDRO 07-13 19:05
PROVIDERS: ADMIT Pharmacist; ATTEND Internal Medicine

== ENCOUNTER 2020-08-14 11:30 | Inpatient (IN) ==
[2020-08-14] MEDS ORDERED: methylPREDNISolone 125 MG/2 ML VIAL IVP ONE (11:38)
[2020-08-14 12:07] LABS: Basophils % 0.4 %; Eosinophils % 0.2 %; Hematocrit 40.5 % (37.5-50.1); Hemoglobin 13.4 g/dL (12.9-16.9); Immature Granulocytes % 1.1 % (0-4); Lymphocytes # 0.8 K/mcL (0.6-4.6); Lymphocytes % 14.8 %; Mean Corpuscular HGB Conc 33.1 g/dL (31.6-35.5); Mean Corpuscular Hemoglobin 32.1 pg (28.0-33.3); Mean Corpuscular Volume 96.9 fL (83.0-100.0); Mean Platelet Volume 9.7 fL (9.4-12.4); Monocytes # 0.4 K/mcL (0.0-1.3); Monocytes % 7.2 %; Neutrophils # 4.3 K/mcL (1.6-8.9); Platelet Count 218 K/mcL (140-400); Red Blood Count 4.18 M/mcL (4.19-5.50); Red Cell Distribution Width 12.7 % (11.5-14.5); Segmented Neutrophils % 76.3 %; White Blood Count 5.7 K/mcL (4.3-11.1)
[2020-08-14 12:28] LABS: BUN/Creatinine Ratio 33 (6-26); Blood Urea Nitrogen 18 mg/dL (8-23); Calcium 8.6 mg/dL (8.6-10.3); Carbon Dioxide > 45 mEq/L (23-29); Chloride 88 mEq/L (98-107); Glucose 429 mg/dL (70-105); Osmolality,Calculated 302 (280-300); Potassium 4.1 mEq/L (3.5-5.1); Sodium 136 mEq/L (136-145); Troponin I < 0.03 ng/mL (< 0.04); eGFR For African Americans > 60 (> 60); eGFR For Non-African Americans > 60 (> 60)
[2020-08-14 12:55] LABS: Adenovirus Not Detected (Not Detect); Coronavirus 229E Not Detected (Not Detect); Coronavirus HKU1 Not Detected (Not Detect); Coronavirus NL63 Not Detected (Not Detect); Coronavirus OC43 Not Detected (Not Detect); Human Metapneumovirus Not Detected (Not Detect); Human Rhinovirus/Enterovirus Not Detected (Not Detect); Influenza A Subtype 2009 H1 Not Detected (Not Detect); SARS-CoV-2 Not Detected (Not Detect)
[2020-08-14 12:56] LABS: Bordetella Pertussis Not Detected (Not Detect); Chlamydophila pneumoniae Not Detected (Not Detect); Influenza B Not Detected (Not Detect); Mycoplasma pneumoniae Not Detected (Not Detect); Parainfluenza Virus 1 Not Detected (Not Detect); Parainfluenza Virus 2 Not Detected (Not Detect); Parainfluenza Virus 3 Not Detected (Not Detect); Parainfluenza Virus 4 Not Detected (Not Detect); Respiratory Syncytial Virus Not Detected (Not Detect)
[2020-08-14] MEDS ORDERED: Ipratropium/Albuterol Neb 3 ML IH ONE (12:59)
[2020-08-14] MEDS ORDERED: Ondansetron 4 MG/2 ML VIAL IVP PRN (15:19)
[2020-08-14] MEDS ORDERED: MOM Conc 10 ML UD.LIQ PO PRN (15:19)
[2020-08-14] MEDS ORDERED: Naloxone 0.4 MG/ML INJ IVP PRN (15:19)
[2020-08-14] MEDS ORDERED: D5% in Water 1,000 ML IVC PRN ×2 (15:32→15:33)
[2020-08-14] MEDS ORDERED: *HR* Dextrose 50 % in Water (Vial) 50 ML VIAL IVP PRN ×2 (15:32→15:33)
[2020-08-14] MEDS ORDERED: Dextrose Gel 15 GM/37.5 ML TUBE PO PRN ×4 (15:32→15:33)
[2020-08-14] MEDS: Ipratropium/Albuterol Neb 3 ML IH SCH ×2 (16:27→23:53)
[2020-08-14] MEDS: methylPREDNISolone 125 MG/2 ML VIAL IVP SCH (18:26)
[2020-08-14] MEDS: Azithromycin 500 MG in D5% in Water 250 ML IVPB SCH (18:27)
[2020-08-14] MEDS: Insulin LISPRO 300 UNITS/3 ML VIAL SUBQ SCH ×2 (18:33→20:22)
[2020-08-14] MEDS: *HR* Heparin 5,000 UNIT/ML VIAL SQ SCH (18:34)
[2020-08-14] MEDS: risperiDONE 1 MG TABLET PO SCH (20:21)
[2020-08-14 22:11] LABS: Estimated Average Glucose 209 mg/dl; Hemoglobin A1C 8.9 %
[2020-08-15] MEDS: methylPREDNISolone 125 MG/2 ML VIAL IVP SCH ×4 (00:04→23:53)
[2020-08-15] MEDS: Ipratropium/Albuterol Neb 3 ML IH SCH ×4 (03:52→22:38)
[2020-08-15 05:40] LABS: Basophils % 0.1 %; Hemoglobin 12.6 g/dL (12.9-16.9); Immature Granulocytes % 1.1 % (0-4); Lymphocytes # 0.7 K/mcL (0.6-4.6); Lymphocytes % 7.1 %; Mean Corpuscular HGB Conc 34.1 g/dL (31.6-35.5); Mean Corpuscular Hemoglobin 31.8 pg (28.0-33.3); Mean Corpuscular Volume 93.4 fL (83.0-100.0); Mean Platelet Volume 9.9 fL (9.4-12.4); Monocytes # 0.1 K/mcL (0.0-1.3); Neutrophils # 8.4 K/mcL (1.6-8.9); Platelet Count 231 K/mcL (140-400); Red Blood Count 3.96 M/mcL (4.19-5.50); Red Cell Distribution Width 12.3 % (11.5-14.5); Segmented Neutrophils % 90.7 %
[2020-08-15 05:42] LABS: White Blood Count 9.3 K/mcL (4.3-11.1)
[2020-08-15 05:58] LABS: Alanine Aminotransferase 20 Units/L (7-52); Albumin 3.9 g/dL (3.5-5.7); Albumin/Globulin Ratio 2.3 (1.1-2.2); Alkaline Phosphatase 65 Units/L (34-104); Aspartate Amino Transferase 14 Units/L (13-39); BUN/Creatinine Ratio 33 (6-26); Bilirubin,Total 0.7 mg/dL (0.3-1.0); Blood Urea Nitrogen 16 mg/dL (8-23); Calcium 8.8 mg/dL (8.6-10.3); Carbon Dioxide 45 mEq/L (23-29); Chloride 89 mEq/L (98-107); Globulin 1.7 g/dL (2.4-3.5); Glucose 350 mg/dL (70-105); Osmolality,Calculated 297 (280-300); Potassium 4.3 mEq/L (3.5-5.1); Sodium 136 mEq/L (136-145); Total Protein 5.6 g/dL (6.4-8.9); eGFR For African Americans > 60 (> 60); eGFR For Non-African Americans > 60 (> 60)
[2020-08-15] MEDS: *HR* Heparin 5,000 UNIT/ML VIAL SQ SCH ×2 (05:59→16:09)
[2020-08-15] MEDS: risperiDONE 1 MG TABLET PO SCH ×2 (08:00→21:02)
[2020-08-15] MEDS: Insulin LISPRO 300 UNITS/3 ML VIAL SUBQ SCH ×4 (08:03→21:03)
[2020-08-15] MEDS: Budesonide/Formoterol 160/4.5 1 PUFF INH IH SCH ×2 (09:57→22:38)
[2020-08-15] MEDS: Azithromycin 500 MG in D5% in Water 250 ML IVPB SCH (16:06)
[2020-08-15] MEDS: carvediloL 6.25 MG TABLET PO SCH (16:16)
[2020-08-15] MEDS: traZODone 50 MG TABLET PO SCH (21:02)
[2020-08-16] MEDS: Ipratropium/Albuterol Neb 3 ML IH SCH ×4 (03:49→21:15)
[2020-08-16] MEDS: *HR* Heparin 5,000 UNIT/ML VIAL SQ SCH ×2 (05:42→17:34)
[2020-08-16 06:22] LABS: Basophils % 0.1 %; Hematocrit 35.5 % (37.5-50.1); Immature Granulocytes % 0.9 % (0-4); Lymphocytes # 0.5 K/mcL (0.6-4.6); Lymphocytes % 3.9 %; Mean Corpuscular HGB Conc 33.8 g/dL (31.6-35.5); Mean Corpuscular Hemoglobin 31.7 pg (28.0-33.3); Mean Corpuscular Volume 93.7 fL (83.0-100.0); Mean Platelet Volume 10.1 fL (9.4-12.4); Monocytes # 0.3 K/mcL (0.0-1.3); Monocytes % 2.3 %; Neutrophils # 10.8 K/mcL (1.6-8.9); Platelet Count 230 K/mcL (140-400); Red Blood Count 3.79 M/mcL (4.19-5.50); Red Cell Distribution Width 12.3 % (11.5-14.5); Segmented Neutrophils % 92.8 %; White Blood Count 11.7 K/mcL (4.3-11.1)
[2020-08-16 06:43] LABS: BUN/Creatinine Ratio 39 (6-26); Blood Urea Nitrogen 21 mg/dL (8-23); Calcium 8.4 mg/dL (8.6-10.3); Carbon Dioxide 38 mEq/L (23-29); Chloride 87 mEq/L (98-107); Glucose 385 mg/dL (70-105); Osmolality,Calculated 295 (280-300); Potassium 4.5 mEq/L (3.5-5.1); Sodium 133 mEq/L (136-145); eGFR For African Americans > 60 (> 60); eGFR For Non-African Americans > 60 (> 60)
[2020-08-16] MEDS: methylPREDNISolone 125 MG/2 ML VIAL IVP SCH ×2 (08:58→16:28)
[2020-08-16] MEDS: carvediloL 6.25 MG TABLET PO SCH ×2 (08:59→16:29)
[2020-08-16] MEDS: risperiDONE 1 MG TABLET PO SCH ×2 (08:59→20:49)
[2020-08-16] MEDS: Insulin LISPRO 300 UNITS/3 ML VIAL SUBQ SCH ×5 (08:59→20:51)
[2020-08-16] MEDS: Aspirin Enteric Coated 81 MG Tablet PO SCH (08:59)
[2020-08-16] MEDS: Insulin DETEMIR 100 UNIT/ML X5UNITS SUBQ SCH ×2 (09:07→21:01)
[2020-08-16] MEDS: Budesonide/Formoterol 160/4.5 1 PUFF INH IH SCH ×2 (09:38→21:16)
[2020-08-16] MEDS: Azithromycin 500 MG in D5% in Water 250 ML IVPB SCH (16:27)
[2020-08-16] MEDS: traZODone 50 MG TABLET PO SCH (20:49)
[2020-08-17] MEDS: methylPREDNISolone 125 MG/2 ML VIAL IVP SCH ×2 (00:35→08:27)
[2020-08-17] MEDS: Ipratropium/Albuterol Neb 3 ML IH SCH ×4 (03:38→22:29)
[2020-08-17] MEDS: *HR* Heparin 5,000 UNIT/ML VIAL SQ SCH ×2 (05:40→17:28)
[2020-08-17 05:53] LABS: Basophils % 0.1 %; Hematocrit 35.4 % (37.5-50.1); Hemoglobin 12.3 g/dL (12.9-16.9); Immature Granulocytes % 0.9 % (0-4); Lymphocytes # 0.5 K/mcL (0.6-4.6); Mean Corpuscular HGB Conc 34.7 g/dL (31.6-35.5); Mean Corpuscular Hemoglobin 32.6 pg (28.0-33.3); Mean Corpuscular Volume 93.9 fL (83.0-100.0); Monocytes # 0.3 K/mcL (0.0-1.3); Monocytes % 2.2 %; Neutrophils # 11.7 K/mcL (1.6-8.9); Platelet Count 216 K/mcL (140-400); Red Blood Count 3.77 M/mcL (4.19-5.50); Red Cell Distribution Width 12.4 % (11.5-14.5); Segmented Neutrophils % 92.8 %; White Blood Count 12.6 K/mcL (4.3-11.1)
[2020-08-17 06:10] LABS: BUN/Creatinine Ratio 34 (6-26); Blood Urea Nitrogen 19 mg/dL (8-23); Calcium 8.5 mg/dL (8.6-10.3); Carbon Dioxide 38 mEq/L (23-29); Chloride 93 mEq/L (98-107); Glucose 300 mg/dL (70-105); Osmolality,Calculated 293 (280-300); Potassium 4.5 mEq/L (3.5-5.1); Sodium 135 mEq/L (136-145); eGFR For African Americans > 60 (> 60); eGFR For Non-African Americans > 60 (> 60)
[2020-08-17] MEDS: carvediloL 6.25 MG TABLET PO SCH ×2 (08:27→17:28)
[2020-08-17] MEDS: Aspirin Enteric Coated 81 MG Tablet PO SCH (08:27)
[2020-08-17] MEDS: risperiDONE 1 MG TABLET PO SCH ×2 (08:28→20:13)
[2020-08-17] MEDS: Insulin LISPRO 300 UNITS/3 ML VIAL SUBQ SCH ×4 (08:28→20:14)
[2020-08-17] MEDS: Insulin DETEMIR 100 UNIT/ML X5UNITS SUBQ SCH ×2 (08:35→22:10)
[2020-08-17] MEDS: Budesonide/Formoterol 160/4.5 1 PUFF INH IH SCH ×2 (11:29→22:30)
[2020-08-17] MEDS ORDERED: Insulin DETEMIR 100 UNIT/ML X5UNITS SUBQ ONE (12:08)
[2020-08-17] MEDS ORDERED: Isovue-370 500 ML BOTTLE IVP ONE (15:19)
[2020-08-17] MEDS: Acetylcysteine 10% 2 ML INHSOL IH SCH ×2 (15:41→22:29)
[2020-08-17] MEDS ORDERED: Furosemide 40 MG/4 ML VIAL IVP ONE (17:10)
[2020-08-17] MEDS: Azithromycin 500 MG in D5% in Water 250 ML IVPB SCH (17:29)
[2020-08-17] MEDS: traZODone 50 MG TABLET PO SCH (20:13)
[2020-08-17] MEDS: MethylPREDNISolone 40 MG/ML VIAL IVP SCH (23:19)
[2020-08-18] MEDS: Acetylcysteine 10% 2 ML INHSOL IH SCH ×4 (03:37→21:31)
[2020-08-18] MEDS: Ipratropium/Albuterol Neb 3 ML IH SCH ×4 (03:37→21:30)
[2020-08-18] MEDS: *HR* Heparin 5,000 UNIT/ML VIAL SQ SCH ×2 (04:57→16:36)
[2020-08-18 06:05] LABS: Basophils % 0.2 %; Hematocrit 39.5 % (37.5-50.1); Hemoglobin 13.4 g/dL (12.9-16.9); Immature Granulocytes % 1.3 % (0-4); Lymphocytes # 0.6 K/mcL (0.6-4.6); Mean Corpuscular HGB Conc 33.9 g/dL (31.6-35.5); Mean Corpuscular Hemoglobin 31.7 pg (28.0-33.3); Mean Corpuscular Volume 93.4 fL (83.0-100.0); Mean Platelet Volume 9.6 fL (9.4-12.4); Monocytes # 0.5 K/mcL (0.0-1.3); Monocytes % 3.6 %; Neutrophils # 11.6 K/mcL (1.6-8.9); Nucleated Red Blood Cells 0.2 /100 WBC (0); Platelet Count 239 K/mcL (140-400); Red Blood Count 4.23 M/mcL (4.19-5.50); Red Cell Distribution Width 12.5 % (11.5-14.5); Segmented Neutrophils % 89.9 %; White Blood Count 12.9 K/mcL (4.3-11.1)
[2020-08-18 06:30] LABS: BUN/Creatinine Ratio 39 (6-26); Blood Urea Nitrogen 21 mg/dL (8-23); Calcium 8.8 mg/dL (8.6-10.3); Carbon Dioxide 44 mEq/L (23-29); Chloride 91 mEq/L (98-107); Glucose 104 mg/dL (70-105); Osmolality,Calculated 289 (280-300); Potassium 4.2 mEq/L (3.5-5.1); Sodium 138 mEq/L (136-145); eGFR For African Americans > 60 (> 60); eGFR For Non-African Americans > 60 (> 60)
[2020-08-18] MEDS: Insulin LISPRO 300 UNITS/3 ML VIAL SUBQ SCH ×5 (07:43→20:31)
[2020-08-18] MEDS: Aspirin Enteric Coated 81 MG Tablet PO SCH (08:55)
[2020-08-18] MEDS: carvediloL 6.25 MG TABLET PO SCH ×2 (08:55→16:37)
[2020-08-18] MEDS: risperiDONE 1 MG TABLET PO SCH ×2 (08:55→20:31)
[2020-08-18] MEDS: MethylPREDNISolone 40 MG/ML VIAL IVP SCH ×3 (08:55→23:29)
[2020-08-18] MEDS: Insulin DETEMIR 100 UNIT/ML X5UNITS SUBQ SCH ×2 (09:01→20:31)
[2020-08-18] MEDS: Budesonide/Formoterol 160/4.5 1 PUFF INH IH SCH ×2 (10:13→21:30)
[2020-08-18] MEDS: Piperacillin/Tazobactam 3.375 GM in 0.9 % Sodium Chloride Mini Bag 100 ML IVPB SCH ×2 (11:49→17:37)
[2020-08-18] MEDS ORDERED: Furosemide 40 MG/4 ML VIAL IVP ONE (13:35)
[2020-08-18] MEDS ORDERED: Insulin DETEMIR 100 UNIT/ML X5UNITS SUBQ ONE (13:38)
[2020-08-18] MEDS: methylPREDNISolone 125 MG/2 ML VIAL IVP SCH (15:06)
[2020-08-18] MEDS: Azithromycin 500 MG in D5% in Water 250 ML IVPB SCH (16:36)
[2020-08-18] MEDS: traZODone 50 MG TABLET PO SCH (20:32)
[2020-08-19] MEDS: Piperacillin/Tazobactam 3.375 GM in 0.9 % Sodium Chloride Mini Bag 100 ML IVPB SCH ×3 (02:32→20:31)
[2020-08-19] MEDS: Ipratropium/Albuterol Neb 3 ML IH SCH ×4 (04:41→22:25)
[2020-08-19] MEDS: Acetylcysteine 10% 2 ML INHSOL IH SCH ×3 (04:41→15:52)
[2020-08-19] MEDS: *HR* Heparin 5,000 UNIT/ML VIAL SQ SCH ×2 (05:22→17:13)
[2020-08-19] MEDS: MethylPREDNISolone 40 MG/ML VIAL IVP SCH (06:38)
[2020-08-19] MEDS: carvediloL 6.25 MG TABLET PO SCH ×2 (06:38→17:13)
[2020-08-19 06:58] LABS: Basophils % 0.2 %; Hematocrit 38.2 % (37.5-50.1); Hemoglobin 13.2 g/dL (12.9-16.9); Immature Granulocytes % 1.3 % (0-4); Lymphocytes # 0.4 K/mcL (0.6-4.6); Lymphocytes % 3.5 %; Mean Corpuscular HGB Conc 34.6 g/dL (31.6-35.5); Mean Corpuscular Hemoglobin 32.9 pg (28.0-33.3); Mean Corpuscular Volume 95.3 fL (83.0-100.0); Mean Platelet Volume 10.2 fL (9.4-12.4); Monocytes # 0.4 K/mcL (0.0-1.3); Monocytes % 3.5 %; Neutrophils # 11.4 K/mcL (1.6-8.9); Platelet Count 233 K/mcL (140-400); Red Blood Count 4.01 M/mcL (4.19-5.50); Red Cell Distribution Width 12.4 % (11.5-14.5); Segmented Neutrophils % 91.5 %; White Blood Count 12.5 K/mcL (4.3-11.1)
[2020-08-19 07:19] LABS: BUN/Creatinine Ratio 38 (6-26); Blood Urea Nitrogen 20 mg/dL (8-23); Calcium 8.4 mg/dL (8.6-10.3); Carbon Dioxide 42 mEq/L (23-29); Chloride 91 mEq/L (98-107); Glucose 162 mg/dL (70-105); Osmolality,Calculated 290 (280-300); Potassium 4.1 mEq/L (3.5-5.1); Sodium 137 mEq/L (136-145); eGFR For African Americans > 60 (> 60); eGFR For Non-African Americans > 60 (> 60)
[2020-08-19] MEDS: Insulin LISPRO 300 UNITS/3 ML VIAL SUBQ SCH ×4 (07:36→20:29)
[2020-08-19] MEDS: risperiDONE 1 MG TABLET PO SCH ×2 (09:22→20:31)
[2020-08-19] MEDS: Aspirin Enteric Coated 81 MG Tablet PO SCH (09:22)
[2020-08-19] MEDS: Insulin DETEMIR 100 UNIT/ML X5UNITS SUBQ SCH ×2 (09:23→20:29)
[2020-08-19] MEDS: Budesonide/Formoterol 160/4.5 1 PUFF INH IH SCH ×2 (10:35→22:26)
[2020-08-19] MEDS ORDERED: Furosemide 20 MG/2 ML VIAL IVP ONE (16:13)
[2020-08-19] MEDS: Azithromycin 500 MG in D5% in Water 250 ML IVPB SCH (17:14)
[2020-08-19] MEDS: traZODone 50 MG TABLET PO SCH (20:30)
[2020-08-20 01:50] LABS: Basophils % 0.2 %; Eosinophils % 0.1 %; Hematocrit 36.8 % (37.5-50.1); Hemoglobin 12.6 g/dL (12.9-16.9); Mean Corpuscular HGB Conc 34.2 g/dL (31.6-35.5); Mean Corpuscular Hemoglobin 33.1 pg (28.0-33.3); Mean Corpuscular Volume 96.6 fL (83.0-100.0); Mean Platelet Volume 10.2 fL (9.4-12.4); Monocytes # 1.1 K/mcL (0.0-1.3); Monocytes % 7.4 %; Neutrophils # 12.2 K/mcL (1.6-8.9); Platelet Count 228 K/mcL (140-400); Red Blood Count 3.81 M/mcL (4.19-5.50); Red Cell Distribution Width 12.6 % (11.5-14.5); Segmented Neutrophils % 84.3 %; White Blood Count 14.4 K/mcL (4.3-11.1)
[2020-08-20 02:11] LABS: BUN/Creatinine Ratio 50 (6-26); Blood Urea Nitrogen 27 mg/dL (8-23); Calcium 8.5 mg/dL (8.6-10.3); Carbon Dioxide 40 mEq/L (23-29); Chloride 90 mEq/L (98-107); Glucose 305 mg/dL (70-105); Osmolality,Calculated 293 (280-300); Potassium 4.4 mEq/L (3.5-5.1); Sodium 133 mEq/L (136-145); eGFR For African Americans > 60 (> 60); eGFR For Non-African Americans > 60 (> 60)
[2020-08-20] MEDS: Ipratropium/Albuterol Neb 3 ML IH SCH ×4 (03:42→22:15)
[2020-08-20] MEDS: *HR* Heparin 5,000 UNIT/ML VIAL SQ SCH ×2 (03:59→18:01)
[2020-08-20] MEDS: Piperacillin/Tazobactam 3.375 GM in 0.9 % Sodium Chloride Mini Bag 100 ML IVPB SCH ×3 (04:00→18:01)
[2020-08-20] MEDS: Budesonide/Formoterol 160/4.5 1 PUFF INH IH SCH ×2 (09:47→22:16)
[2020-08-20] MEDS: Aspirin Enteric Coated 81 MG Tablet PO SCH (10:10)
[2020-08-20] MEDS: carvediloL 6.25 MG TABLET PO SCH ×2 (10:10→16:07)
[2020-08-20] MEDS: predniSONE 20 MG TABLET PO SCH (10:11)
[2020-08-20] MEDS: Insulin LISPRO 300 UNITS/3 ML VIAL SUBQ SCH ×4 (10:12→21:18)
[2020-08-20] MEDS: risperiDONE 1 MG TABLET PO SCH ×2 (10:12→21:17)
[2020-08-20] MEDS: Insulin DETEMIR 100 UNIT/ML X5UNITS SUBQ SCH ×2 (10:25→21:18)
[2020-08-20] MEDS: MethylPREDNISolone 40 MG/ML VIAL IVP SCH (15:42)
[2020-08-20] MEDS: Azithromycin 500 MG in D5% in Water 250 ML IVPB SCH (16:07)
[2020-08-20] MEDS: traZODone 50 MG TABLET PO SCH (21:18)
[2020-08-21] MEDS: Ipratropium/Albuterol Neb 3 ML IH SCH ×4 (03:25→23:55)
[2020-08-21] MEDS: Piperacillin/Tazobactam 3.375 GM in 0.9 % Sodium Chloride Mini Bag 100 ML IVPB SCH ×3 (03:48→18:07)
[2020-08-21 05:27] LABS: Basophils # 0.1 K/mcL (0.0-0.2); Basophils % 0.4 %; Eosinophils % 0.1 %; Hematocrit 36.2 % (37.5-50.1); Immature Granulocytes % 1.6 % (0-4); Lymphocytes # 0.9 K/mcL (0.6-4.6); Lymphocytes % 7.1 %; Mean Corpuscular HGB Conc 33.1 g/dL (31.6-35.5); Mean Corpuscular Hemoglobin 31.7 pg (28.0-33.3); Mean Corpuscular Volume 95.5 fL (83.0-100.0); Mean Platelet Volume 10.1 fL (9.4-12.4); Monocytes # 0.7 K/mcL (0.0-1.3); Monocytes % 5.6 %; Neutrophils # 10.7 K/mcL (1.6-8.9); Platelet Count 236 K/mcL (140-400); Red Blood Count 3.79 M/mcL (4.19-5.50); Red Cell Distribution Width 12.7 % (11.5-14.5); Segmented Neutrophils % 85.2 %; White Blood Count 12.5 K/mcL (4.3-11.1)
[2020-08-21 05:50] LABS: BUN/Creatinine Ratio 45 (6-26); Blood Urea Nitrogen 23 mg/dL (8-23); Calcium 8.7 mg/dL (8.6-10.3); Carbon Dioxide 38 mEq/L (23-29); Chloride 93 mEq/L (98-107); Glucose 265 mg/dL (70-105); Osmolality,Calculated 293 (280-300); Potassium 4.7 mEq/L (3.5-5.1); Sodium 135 mEq/L (136-145); eGFR For African Americans > 60 (> 60); eGFR For Non-African Americans > 60 (> 60)
[2020-08-21] MEDS: *HR* Heparin 5,000 UNIT/ML VIAL SQ SCH ×2 (06:43→17:24)
[2020-08-21] MEDS: predniSONE 20 MG TABLET PO SCH (08:13)
[2020-08-21] MEDS: carvediloL 6.25 MG TABLET PO SCH ×2 (08:13→17:24)
[2020-08-21] MEDS: Aspirin Enteric Coated 81 MG Tablet PO SCH (08:13)
[2020-08-21] MEDS: risperiDONE 1 MG TABLET PO SCH ×2 (08:13→19:32)
[2020-08-21] MEDS: Insulin DETEMIR 100 UNIT/ML X5UNITS SUBQ SCH ×2 (08:14→19:32)
[2020-08-21] MEDS: Insulin LISPRO 300 UNITS/3 ML VIAL SUBQ SCH ×4 (08:15→19:35)
[2020-08-21] MEDS: Budesonide/Formoterol 160/4.5 1 PUFF INH IH SCH ×2 (10:51→23:55)
[2020-08-21] MEDS: traZODone 50 MG TABLET PO SCH (19:32)
[2020-08-22] MEDS: Piperacillin/Tazobactam 3.375 GM in 0.9 % Sodium Chloride Mini Bag 100 ML IVPB SCH ×3 (02:52→17:59)
[2020-08-22] MEDS: Ipratropium/Albuterol Neb 3 ML IH SCH ×4 (03:15→22:57)
[2020-08-22] MEDS: *HR* Heparin 5,000 UNIT/ML VIAL SQ SCH ×2 (05:15→16:40)
[2020-08-22] MEDS: Insulin LISPRO 300 UNITS/3 ML VIAL SUBQ SCH ×4 (07:25→20:30)
[2020-08-22] MEDS: predniSONE 20 MG TABLET PO SCH (07:32)
[2020-08-22] MEDS: risperiDONE 1 MG TABLET PO SCH ×2 (07:32→20:31)
[2020-08-22] MEDS: Aspirin Enteric Coated 81 MG Tablet PO SCH (07:32)
[2020-08-22] MEDS: carvediloL 6.25 MG TABLET PO SCH ×2 (07:32→16:42)
[2020-08-22] MEDS: Insulin DETEMIR 100 UNIT/ML X5UNITS SUBQ SCH ×2 (07:36→20:31)
[2020-08-22] MEDS: Budesonide/Formoterol 160/4.5 1 PUFF INH IH SCH ×2 (11:42→22:57)
[2020-08-22] MEDS ORDERED: Insulin LISPRO 300 UNITS/3 ML VIAL SUBQ ONE (17:47)
[2020-08-22] MEDS: traZODone 50 MG TABLET PO SCH (20:30)
[2020-08-23] MEDS: Ipratropium/Albuterol Neb 3 ML IH SCH ×4 (02:58→22:45)
[2020-08-23] MEDS: Piperacillin/Tazobactam 3.375 GM in 0.9 % Sodium Chloride Mini Bag 100 ML IVPB SCH ×3 (03:53→18:08)
[2020-08-23] MEDS: *HR* Heparin 5,000 UNIT/ML VIAL SQ SCH ×2 (05:03→18:08)
[2020-08-23 05:22] LABS: Basophils % 0.3 %; Eosinophils # 0.1 K/mcL (0.0-0.6); Eosinophils % 0.7 %; Hematocrit 38.8 % (37.5-50.1); Hemoglobin 12.8 g/dL (12.9-16.9); Immature Granulocytes % 1.7 % (0-4); Lymphocytes # 1.5 K/mcL (0.6-4.6); Lymphocytes % 14.4 %; Mean Corpuscular Hemoglobin 31.6 pg (28.0-33.3); Mean Corpuscular Volume 95.8 fL (83.0-100.0); Mean Platelet Volume 9.7 fL (9.4-12.4); Monocytes # 0.9 K/mcL (0.0-1.3); Monocytes % 8.7 %; Neutrophils # 7.5 K/mcL (1.6-8.9); Platelet Count 261 K/mcL (140-400); Red Blood Count 4.05 M/mcL (4.19-5.50); Red Cell Distribution Width 12.8 % (11.5-14.5); Segmented Neutrophils % 74.2 %
[2020-08-23 05:45] LABS: BUN/Creatinine Ratio 32 (6-26); Blood Urea Nitrogen 18 mg/dL (8-23); Calcium 8.6 mg/dL (8.6-10.3); Carbon Dioxide 40 mEq/L (23-29); Chloride 91 mEq/L (98-107); Glucose 123 mg/dL (70-105); Osmolality,Calculated 283 (280-300); Potassium 4.9 mEq/L (3.5-5.1); Sodium 135 mEq/L (136-145); eGFR For African Americans > 60 (> 60); eGFR For Non-African Americans > 60 (> 60)
[2020-08-23] MEDS: Insulin LISPRO 300 UNITS/3 ML VIAL SUBQ SCH ×7 (07:30→20:09)
[2020-08-23] MEDS: Budesonide/Formoterol 160/4.5 1 PUFF INH IH SCH ×2 (10:50→22:45)
[2020-08-23] MEDS: carvediloL 6.25 MG TABLET PO SCH ×2 (10:59→15:16)
[2020-08-23] MEDS: Aspirin Enteric Coated 81 MG Tablet PO SCH (10:59)
[2020-08-23] MEDS: predniSONE 20 MG TABLET PO SCH (10:59)
[2020-08-23] MEDS: risperiDONE 1 MG TABLET PO SCH ×2 (10:59→20:03)
[2020-08-23] MEDS: Insulin DETEMIR 100 UNIT/ML X5UNITS SUBQ SCH ×2 (11:04→20:06)
[2020-08-23] MEDS: traZODone 50 MG TABLET PO SCH (20:03)
[2020-08-24] MEDS: Ipratropium/Albuterol Neb 3 ML IH SCH ×4 (04:04→21:27)
[2020-08-24] MEDS: Piperacillin/Tazobactam 3.375 GM in 0.9 % Sodium Chloride Mini Bag 100 ML IVPB SCH ×3 (04:49→17:31)
[2020-08-24] MEDS: *HR* Heparin 5,000 UNIT/ML VIAL SQ SCH ×2 (04:50→17:31)
[2020-08-24 05:48] LABS: Hematocrit 39.1 % (37.5-50.1); Hemoglobin 13.2 g/dL (12.9-16.9); Mean Corpuscular HGB Conc 33.8 g/dL (31.6-35.5); Mean Corpuscular Hemoglobin 32.5 pg (28.0-33.3); Mean Corpuscular Volume 96.3 fL (83.0-100.0); Mean Platelet Volume 9.5 fL (9.4-12.4); Platelet Count 260 K/mcL (140-400); Red Blood Count 4.06 M/mcL (4.19-5.50); Red Cell Distribution Width 12.6 % (11.5-14.5); White Blood Count 11.7 K/mcL (4.3-11.1)
[2020-08-24 06:02] LABS: BUN/Creatinine Ratio 36 (6-26); Blood Urea Nitrogen 19 mg/dL (8-23); Calcium 8.9 mg/dL (8.6-10.3); Carbon Dioxide 39 mEq/L (23-29); Chloride 93 mEq/L (98-107); Glucose 173 mg/dL (70-105); Osmolality,Calculated 286 (280-300); Potassium 4.1 mEq/L (3.5-5.1); Sodium 135 mEq/L (136-145); eGFR For African Americans > 60 (> 60); eGFR For Non-African Americans > 60 (> 60)
[2020-08-24] MEDS: Insulin LISPRO 300 UNITS/3 ML VIAL SUBQ SCH ×7 (08:08→20:27)
[2020-08-24] MEDS: risperiDONE 1 MG TABLET PO SCH ×2 (08:10→20:28)
[2020-08-24] MEDS: Aspirin Enteric Coated 81 MG Tablet PO SCH (08:10)
[2020-08-24] MEDS: predniSONE 20 MG TABLET PO SCH (08:10)
[2020-08-24] MEDS: carvediloL 6.25 MG TABLET PO SCH ×2 (08:10→17:31)
[2020-08-24] MEDS: Insulin DETEMIR 100 UNIT/ML X5UNITS SUBQ SCH ×2 (08:12→20:27)
[2020-08-24] MEDS: Budesonide/Formoterol 160/4.5 1 PUFF INH IH SCH ×2 (11:25→21:27)
[2020-08-24] MEDS: traZODone 50 MG TABLET PO SCH (20:27)
[2020-08-25] MEDS: Piperacillin/Tazobactam 3.375 GM in 0.9 % Sodium Chloride Mini Bag 100 ML IVPB SCH (02:25)
[2020-08-25 03:16] LABS: Hematocrit 39.9 % (37.5-50.1); Hemoglobin 13.1 g/dL (12.9-16.9); Mean Corpuscular HGB Conc 32.8 g/dL (31.6-35.5); Mean Corpuscular Hemoglobin 31.6 pg (28.0-33.3); Mean Corpuscular Volume 96.4 fL (83.0-100.0); Mean Platelet Volume 9.7 fL (9.4-12.4); Platelet Count 266 K/mcL (140-400); Red Blood Count 4.14 M/mcL (4.19-5.50); Red Cell Distribution Width 12.8 % (11.5-14.5); White Blood Count 11.4 K/mcL (4.3-11.1)
[2020-08-25 03:35] LABS: BUN/Creatinine Ratio 37 (6-26); Blood Urea Nitrogen 20 mg/dL (8-23); Calcium 8.7 mg/dL (8.6-10.3); Carbon Dioxide 34 mEq/L (23-29); Chloride 97 mEq/L (98-107); Glucose 100 mg/dL (70-105); Osmolality,Calculated 285 (280-300); Potassium 4.1 mEq/L (3.5-5.1); Sodium 136 mEq/L (136-145); eGFR For African Americans > 60 (> 60); eGFR For Non-African Americans > 60 (> 60)
[2020-08-25] MEDS: Ipratropium/Albuterol Neb 3 ML IH SCH ×2 (03:35→10:45)
[2020-08-25] MEDS: *HR* Heparin 5,000 UNIT/ML VIAL SQ SCH (04:59)
[2020-08-25] MEDS: Insulin LISPRO 300 UNITS/3 ML VIAL SUBQ SCH ×4 (07:46→11:57)
[2020-08-25] MEDS: Insulin DETEMIR 100 UNIT/ML X5UNITS SUBQ SCH (08:10)
[2020-08-25] MEDS: predniSONE 20 MG TABLET PO SCH (08:11)
[2020-08-25] MEDS: Aspirin Enteric Coated 81 MG Tablet PO SCH (08:11)
[2020-08-25] MEDS: risperiDONE 1 MG TABLET PO SCH (08:11)
[2020-08-25] MEDS: carvediloL 6.25 MG TABLET PO SCH (08:11)
[2020-08-25] MEDS: Budesonide/Formoterol 160/4.5 1 PUFF INH IH SCH (10:46)
[2020-08-25 11:05] VITALS: BP 125/79
== END 2020-08-25 14:59 | disposition home or self-care (01) | DRG 140 ==
LOC: EMEROOARM 11:30 → 3BNU 11:30 → SUATTDRO 08-17 15:11
PROVIDERS: ADMIT Internal Medicine; ATTEND Internal Medicine